=== PATIENT | female | born 1960 | race African-American/Black ===

== ENCOUNTER 2018-08-03 09:06 | Emergency (ER) | payer MEDICAID ==
[~2018-08-03] VITALS: Ht 167.6 cm; Wt 81.6 kg
[2018-08-03 10:01] LABS: Basophils # (auto) 0 uL; Basophils % (auto) 0.6 % (0.0-2.0); Eosinophils # (auto) 0.2 uL; Eosinophils % (auto) 2.6 % (0.0-7.0); Hemoglobin 11.7 g/dL (12.2-16.2); Lymphocytes # (auto) 2.6 uL; Lymphocytes % (auto) 43.7 % (10.0-50.0); Mean Corpuscular Hemoglobin 29.5 pg (28.0-32.0); Mean Corpuscular Hgb Conc. 33.4 g/dL (32.0-36.0); Mean Corpuscular Volume 88.4 fL (80.0-100.0); Monocytes # (auto) 0.4 uL; Monocytes % (auto) 6.2 % (0.0-12.0); Neutrophils # (auto) 2.8 uL; Neutrophils % (auto) 46.9 % (37.0-80.0); Nucleated Red Blood Cells % 0.1 %; Platelet Count (auto) 200 10^3/uL (140-450); Red Blood Cells 3.96 10^6/uL (4.0-5.20); Red Cell Distribution Width 13.8 % (11.8-14.3)
[2018-08-03 10:08] LABS: Alanine Aminotransferase 23 U/L (13-56); Anion Gap 10 (5-15); Aspartate Aminotransferase 13 U/L (15-37); BUN/Creatinine Ratio 16.9; Blood Urea Nitrogen 31 mg/dL (7-18); Calcium 9.2 mg/dL (8.5-10.1); Carbon Dioxide 26 mmol/L (21-32); Chloride 100 mmol/L (98-107); GFR African American 37 mL/min; GFR Non-African American 30 mL/min; Glucose 367 mg/dL (74-106); Potassium 3.4 mmol/L (3.5-5.1); Sodium 136 mmol/L (136-145)
[2018-08-03 10:12] LABS: Alkaline Phosphatase 73 U/L (45-117); Bilirubin, Total 0.3 mg/dL (0.2-1.0); Total Protein 7.9 g/dL (6.4-8.2)
[2018-08-03 12:17] VITALS: BP 151/76
[2018-08-03] MEDS ORDERED: HYDROcodone-ACET 7.5/325MG TAB PO ONE (13:45)
[2018-08-03] MEDS ORDERED: InsuLIN REG 1unit/0.01ml Soln (100units/ml) SC ONE (13:45)
== END 2018-08-03 14:53 | disposition home or self-care (01) ==
LOC: ER 09:06 → EDBD 09:06 → ER 14:53
DX: E11.65 Type 2 diabetes mellitus with hyperglycemia (principal); R51 Headache; I10 Essential (primary) hypertension; E11.9 Type 2 diabetes mellitus without complications; E78.5 Hyperlipidemia, unspecified; Z86.73 Personal history of transient ischemic attack (TIA), and cerebral infarction without residual deficits
CPT/HCPCS: 36415; 70450; 80053; 82962; 84484; 85025; 93005; 96372; 99284; J1815

== ENCOUNTER 2018-10-31 11:51 | Emergency (ER) | payer MEDICAID ==
[~2018-10-31] VITALS: Ht 157.5 cm; Wt 74.8 kg
[2018-10-31] MEDS ORDERED: SODIUM CHLORIDE 0.9% 1,000 ML IV ONE (12:10)
[2018-10-31] MEDS ORDERED: FAMOTIDINE (10MG/ML) 2ML VL IV ONE (12:15)
[2018-10-31] MEDS ORDERED: ONDANSETRON HCL 4 MG/2 ML VIAL IV ONE (12:15)
[2018-10-31 12:32] LABS: Basophils # (auto) 0.1 uL; Basophils % (auto) 1.1 % (0.0-2.0); Eosinophils # (auto) 0 uL; Eosinophils % (auto) 0.3 % (0.0-7.0); Hematocrit 39.8 % (36.0-46.0); Hemoglobin 13.4 g/dL (12.2-16.2); Lymphocytes # (auto) 1.7 uL; Lymphocytes % (auto) 24.4 % (10.0-50.0); Mean Corpuscular Hemoglobin 29.6 pg (28.0-32.0); Mean Corpuscular Hgb Conc. 33.7 g/dL (32.0-36.0); Mean Corpuscular Volume 87.8 fL (80.0-100.0); Monocytes # (auto) 0.3 uL; Monocytes % (auto) 3.9 % (0.0-12.0); Neutrophils % (auto) 70.3 % (37.0-80.0); Nucleated Red Blood Cells % 0.1 %; Platelet Count (auto) 314 10^3/uL (140-450); Red Blood Cells 4.53 10^6/uL (4.0-5.20); Red Cell Distribution Width 13.5 % (11.8-14.3); White Blood Cell 7.1 10^3/uL (4.4-10.8)
[2018-10-31 12:46] LABS: INR 0.97 (0.9-1.15); Partial Thromboplastin Time 28.2 sec (23.64-32.05)
[2018-10-31 12:50] LABS: Alanine Aminotransferase 19 U/L (13-56); Albumin 4.5 g/dL (3.4-5.0); Anion Gap 12 (5-15); Aspartate Aminotransferase 18 U/L (15-37); Blood Urea Nitrogen 29 mg/dL (7-18); Calcium 9.4 mg/dL (8.5-10.1); Carbon Dioxide 24 mmol/L (21-32); Chloride 98 mmol/L (98-107); Glucose 350 mg/dL (74-106); Magnesium 1.7 mg/dL (1.6-2.6); Potassium 3.6 mmol/L (3.5-5.1); Sodium 134 mmol/L (136-145)
[2018-10-31 12:56] LABS: Alkaline Phosphatase 82 U/L (45-117); BUN/Creatinine Ratio 13.4; GFR African American 30 mL/min; GFR Non-African American 25 mL/min; Total Protein 8.6 g/dL (6.4-8.2)
[2018-10-31] MEDS ORDERED: GABAPENTIN 300 MG CAP PO ONE (15:00)
[2018-10-31 15:18] VITALS: BP 118/56
== END 2018-10-31 15:19 | disposition home or self-care (01) ==
LOC: ER 11:55
DX: B34.9 Viral infection, unspecified (principal); E11.9 Type 2 diabetes mellitus without complications; E78.5 Hyperlipidemia, unspecified; I10 Essential (primary) hypertension; Z86.73 Personal history of transient ischemic attack (TIA), and cerebral infarction without residual deficits; Z90.49 Acquired absence of other specified parts of digestive tract; Z88.6 Allergy status to analgesic agent
CPT/HCPCS: 36415; 80053; 83735; 84484; 85025; 85610; 85730; 93005; 94761; 96361; 96374; 96375; 99284; J2405; J3490; J7030

== ENCOUNTER 2018-11-18 10:14 | Emergency (ER) | payer MEDICAID ==
[~2018-11-18] VITALS: Ht 157.5 cm; Wt 81.6 kg
[2018-11-18 11:08] LABS: Basophils # (auto) 0 uL; Basophils % (auto) 0.8 % (0.0-2.0); Eosinophils # (auto) 0 uL; Eosinophils % (auto) 0.4 % (0.0-7.0); Hematocrit 37.6 % (36.0-46.0); Hemoglobin 12.9 g/dL (12.2-16.2); Lymphocytes % (auto) 17.4 % (10.0-50.0); Mean Corpuscular Hemoglobin 29.9 pg (28.0-32.0); Mean Corpuscular Hgb Conc. 34.2 g/dL (32.0-36.0); Mean Corpuscular Volume 87.6 fL (80.0-100.0); Monocytes # (auto) 0.2 uL; Monocytes % (auto) 2.9 % (0.0-12.0); Neutrophils # (auto) 4.7 uL; Neutrophils % (auto) 78.5 % (37.0-80.0); Platelet Count (auto) 214 10^3/uL (140-450); Red Cell Distribution Width 13.9 % (11.8-14.3)
[2018-11-18 11:18] LABS: Alanine Aminotransferase 26 U/L (13-56); Albumin 4.3 g/dL (3.4-5.0); Anion Gap 9 (5-15); Aspartate Aminotransferase 16 U/L (15-37); BUN/Creatinine Ratio 7.6; Blood Urea Nitrogen 13 mg/dL (7-18); Calcium 8.7 mg/dL (8.5-10.1); Carbon Dioxide 26 mmol/L (21-32); Chloride 95 mmol/L (98-107); GFR African American 39 mL/min; GFR Non-African American 33 mL/min; Glucose 365 mg/dL (74-106); Potassium 3.8 mmol/L (3.5-5.1); Sodium 130 mmol/L (136-145)
[2018-11-18 11:22] LABS: Alkaline Phosphatase 80 U/L (45-117); Bilirubin, Total 0.8 mg/dL (0.2-1.0); Total Protein 8.2 g/dL (6.4-8.2)
[2018-11-18] MEDS ORDERED: SODIUM CHLORIDE 0.9% 1,000 ML IV ONE ×2 (13:11)
[2018-11-18] MEDS ORDERED: InsuLIN REG 1unit/0.01ml Soln (100units/ml) IV ONE (13:15)
[2018-11-18] MEDS ORDERED: KETOROLAC TROMETH 30 MG/ML 1ML VIAL IV ONE (14:30)
[2018-11-18 16:14] VITALS: BP 143/88
== END 2018-11-18 16:38 | disposition home or self-care (01) ==
LOC: ER 10:14 → EDBD 10:14 → ER 16:38
DX: K52.9 Noninfective gastroenteritis and colitis, unspecified (principal); E11.65 Type 2 diabetes mellitus with hyperglycemia; E78.5 Hyperlipidemia, unspecified; I10 Essential (primary) hypertension; Z90.49 Acquired absence of other specified parts of digestive tract; Z86.73 Personal history of transient ischemic attack (TIA), and cerebral infarction without residual deficits
CPT/HCPCS: 36415; 71045; 74176; 80053; 82962; 84484; 85025; 93005; 96361; 96374; 96375; 99284; J1815; J1885; J7030

== ENCOUNTER 2019-10-21 10:02 | Emergency (ER) | payer MEDICAID ==
[~2019-10-21] VITALS: Ht 160 cm; Wt 81.6 kg
[2019-10-21 10:24] VITALS: BP 170/100
[2019-10-21] MEDS ORDERED: ACETAMINOPHEN 500 MG TAB PO ONE (10:45)
== END 2019-10-21 11:21 | disposition home or self-care (01) ==
LOC: ER 10:02 → EDBD 10:02 → ER 11:21
DX: T16.2XXA Foreign body in left ear, initial encounter (principal); E11.9 Type 2 diabetes mellitus without complications; I10 Essential (primary) hypertension; E78.5 Hyperlipidemia, unspecified; Z90.49 Acquired absence of other specified parts of digestive tract
CPT/HCPCS: 69200

== ENCOUNTER 2020-02-08 17:07 | Emergency (ER) | payer MEDICAID ==
[~2020-02-08] VITALS: Ht 167.6 cm; Wt 72.6 kg
[2020-02-08] MEDS ORDERED: ACETAMINOPHEN 500 MG TAB PO ONE (19:30)
[2020-02-08 20:29] LABS: Urine Bacteria FEW /hpf (None Seen); Urine Blood 2+ /uL (Negative); Urine Specific Gravity 1.019 (1.001-1.035); Urine WBC 2 /hpf (0 - 5)
[2020-02-08 21:50] VITALS: BP 148/80
[2020-02-08 23:25] LABS: Basophils # (auto) 0 10 ^3/uL (0-0.2); Basophils % (auto) 0.8 % (0.0-2.0); Eosinophils # (auto) 0 10 ^3/uL (0-0.8); Eosinophils % (auto) 0.6 % (0.0-7.0); Hematocrit 35.4 % (36.0-46.0); Hemoglobin 11.8 g/dL (12.2-16.2); Lymphocytes # (auto) 0.8 10 ^3/uL (0.4-5.4); Lymphocytes % (auto) 12.6 % (10.0-50.0); Mean Corpuscular Hemoglobin 29.2 pg (28.0-32.0); Mean Corpuscular Hgb Conc. 33.3 g/dL (32.0-36.0); Mean Corpuscular Volume 87.7 fL (80.0-100.0); Monocytes # (auto) 0.5 10 ^3/uL (0-1.3); Monocytes % (auto) 8.1 % (0.0-12.0); Neutrophils # (auto) 4.8 10 ^3/uL (1.6-8.6); Neutrophils % (auto) 77.9 % (37.0-80.0); Nucleated Red Blood Cells % 0.1 %; Platelet Count (auto) 241 10^3/uL (140-450); Red Blood Cells 4.04 10^6/uL (4.0-5.20); White Blood Cell 6.2 10^3/uL (4.4-10.8)
[2020-02-08 23:43] LABS: Albumin 3.6 g/dL (3.4-5.0); Calcium 8.9 mg/dL (8.5-10.1); Potassium 3.1 mmol/L (3.5-5.1)
[2020-02-08 23:48] LABS: BUN/Creatinine Ratio 10.6; Bilirubin, Total 0.4 mg/dL (0.2-1.0); Total Protein 8.1 g/dL (6.4-8.2)
[2020-02-09 02:21] LABS: Alcohol, Urine < 3.0 mg/dL (0-10); Amphetamine Screen, Urine NEGATIVE (NEGATIVE); Barbiturate Scree,Urine NEGATIVE (NEGATIVE); Benzodiazephine Screen, Urine POSITIVE (NEGATIVE); Cannabinoid Screen, Urine NEGATIVE (NEGATIVE); Cocaine Screen, Urine NEGATIVE (NEGATIVE); Opiate Scree,Urine NEGATIVE (NEGATIVE); Phencyclidine Screen, Urine NEGATIVE (NEGATIVE)
[2020-02-09] MEDS ORDERED: MORPHINE SULF INJ 2 MG/ML SYRINGE 1ML IM ONE (03:15)
[2020-02-09] MEDS ORDERED: ONDANSETRON HCL 4 MG/2 ML VIAL IM ONE (03:15)
== END 2020-02-09 03:10 | disposition home or self-care (01) ==
LOC: EDBD 17:07 → ER 17:07
DX: G89.29 Other chronic pain (principal); M54.5 Low back pain; E11.9 Type 2 diabetes mellitus without complications; E78.5 Hyperlipidemia, unspecified; I10 Essential (primary) hypertension; Z90.49 Acquired absence of other specified parts of digestive tract; Z20.828 Contact with and (suspected) exposure to other viral communicable diseases; Z86.73 Personal history of transient ischemic attack (TIA), and cerebral infarction without residual deficits; Z88.6 Allergy status to analgesic agent
CPT/HCPCS: 36415; 80053; 80307; 81001; 82728; 85025; 87426; 96372; 99284; J2270; J2405

== ENCOUNTER 2020-09-24 23:51 | Inpatient (IN) | payer MEDICAID ==
[~2020-09-24] VITALS: Ht 162.6 cm; Wt 86.9 kg
[2020-09-25] MEDS ORDERED: SODIUM CHLORIDE 0.9% 1,000 ML IV ONE ×2 (00:15→05:30)
[2020-09-25 01:47] LABS: Basophils # (auto) 0.2 10 ^3/uL (0-0.2); Basophils % (auto) 1.1 % (0.0-2.0); Eosinophils # (auto) 0 10 ^3/uL (0-0.8); Hematocrit 36.6 % (36.0-46.0); Lymphocytes % (auto) 14.9 % (10.0-50.0); Mean Corpuscular Hemoglobin 30.6 pg (28.0-32.0); Mean Corpuscular Hgb Conc. 32.8 g/dL (32.0-36.0); Mean Corpuscular Volume 93.4 fL (80.0-100.0); Monocytes # (auto) 0.9 10 ^3/uL (0-1.3); Monocytes % (auto) 6.7 % (0.0-12.0); Neutrophils # (auto) 10.3 10 ^3/uL (1.6-8.6); Neutrophils % (auto) 77.3 % (37.0-80.0); Nucleated Red Blood Cells % 0.1 %; Red Blood Cells 3.92 10^6/uL (4.0-5.20); Red Cell Distribution Width 15.7 % (11.8-14.3); White Blood Cell 13.3 10^3/uL (4.4-10.8)
[2020-09-25 02:13] LABS: Lactic Acid w/Reflex 2.7 mmol/L (0.4-2.0)
[2020-09-25 02:20] LABS: INR 1.06 (0.9-1.15); Partial Thromboplastin Time 22.9 sec (23.6-33.0)
[2020-09-25 03:14] LABS: Albumin 3.8 g/dL (3.4-5.0); Anion Gap 24 (5-15); Carbon Dioxide 16 mmol/L (21-32); Chloride 94 mmol/L (98-107); Magnesium 2.5 mg/dL (1.6-2.6); Potassium 5.3 mmol/L (3.5-5.1); Sodium 134 mmol/L (136-145)
[2020-09-25 03:17] LABS: Alanine Aminotransferase 44 U/L (13-56); Aspartate Aminotransferase 290 U/L (15-37); Bilirubin, Total 0.4 mg/dL (0.2-1.0); GFR African American 2 mL/min; GFR Non-African American 2 mL/min; Total Protein 9.4 g/dL (6.4-8.2)
[2020-09-25 03:19] LABS: Glucose 588 mg/dL (74-106)
[2020-09-25 03:20] LABS: Blood Urea Nitrogen 97 mg/dL (7-18)
[2020-09-25 03:23] LABS: Alkaline Phosphatase 85 U/L (45-117)
[2020-09-25] MEDS ORDERED: InsuLIN REG 1unit/0.01ml Soln (100units/ml) IV ONE (03:30)
[2020-09-25] MEDS ORDERED: InsuLIN REG 1unit/0.01ml Soln (100units/ml) ONE (03:30)
[2020-09-25 04:00] LABS: Amphetamine Screen, Urine NEGATIVE (NEGATIVE); Barbiturate Scree,Urine NEGATIVE (NEGATIVE); Benzodiazephine Screen, Urine NEGATIVE (NEGATIVE); Cannabinoid Screen, Urine NEGATIVE (NEGATIVE); Cocaine Screen, Urine NEGATIVE (NEGATIVE); Opiate Scree,Urine NEGATIVE (NEGATIVE); Phencyclidine Screen, Urine NEGATIVE (NEGATIVE)
[2020-09-25 04:04] LABS: Urine Bacteria MOD /hpf (None Seen); Urine Blood TRACE /uL (Negative); Urine Hyaline Cast FEW /lpf (0 - 2); Urine Specific Gravity 1.024 (1.001-1.035); Urine WBC 45 /hpf (0 - 5)
[2020-09-25] MEDS ORDERED: cefTRIAXone 1GM/50ML D5W 50 ML IV ONE (05:30)
[2020-09-25] MEDS ORDERED: SODIUM CHLORIDE 0.9% 1,000 ML IV SCH ×4 (05:30→11:30)
[2020-09-25] MEDS ORDERED: INSULIN LANTUS (GLARGINE) 1 /0.01ml (100units/ml) SC ONE (05:30)
[2020-09-25] MEDS ORDERED: InsuLIN R (HUMAN) 100 UNITS in SODIUM CHL 0.9% 99 ML IV SCH ×3 (05:30→08:15)
[2020-09-25] MEDS ORDERED: DEXTROSE (50%) 50ML SYRG IV PRN ×3 (05:30→08:15)
[2020-09-25] MEDS ORDERED: D5W/SOD CHLO 0.9% 1,000 ML IV SCH (05:45)
[2020-09-25] MEDS ORDERED: ONDANSETRON HCL 4 MG/2 ML VIAL IV PRN (05:45)
[2020-09-25] MEDS ORDERED: MORPHINE SULFATE INJECTION 2 MG/2 ML SYRG IV PRN (05:45)
[2020-09-25] MEDS ORDERED: NITROGLYCERIN 0.4 MG SL TAB SL PRN (05:45)
[2020-09-25] MEDS ORDERED: ACCU-CHEK COMFORT CURVE STRIP VI SCH ×3 (06:00→09:00)
[2020-09-25 06:31] LABS: Basophils # (auto) 0.2 10 ^3/uL (0-0.2); Basophils % (auto) 1.1 % (0.0-2.0); Eosinophils # (auto) 0.1 10 ^3/uL (0-0.8); Eosinophils % (auto) 0.3 % (0.0-7.0); Hematocrit 33.7 % (36.0-46.0); Hemoglobin 10.9 g/dL (12.2-16.2); Lymphocytes # (auto) 1.9 10 ^3/uL (0.4-5.4); Mean Corpuscular Hemoglobin 30.5 pg (28.0-32.0); Mean Corpuscular Hgb Conc. 32.4 g/dL (32.0-36.0); Mean Corpuscular Volume 94.1 fL (80.0-100.0); Monocytes # (auto) 1.1 10 ^3/uL (0-1.3); Monocytes % (auto) 7.1 % (0.0-12.0); Neutrophils # (auto) 12.4 10 ^3/uL (1.6-8.6); Neutrophils % (auto) 79.5 % (37.0-80.0); Red Blood Cells 3.58 10^6/uL (4.0-5.20); Red Cell Distribution Width 15.4 % (11.8-14.3); White Blood Cell 15.5 10^3/uL (4.4-10.8)
[2020-09-25 06:47] LABS: Albumin 3.3 g/dL (3.4-5.0); Calcium 8.6 mg/dL (8.5-10.1); Magnesium 2.6 mg/dL (1.6-2.6); Potassium 4.9 mmol/L (3.5-5.1)
[2020-09-25 06:56] LABS: Bilirubin, Total 0.3 mg/dL (0.2-1.0); Total Protein 8.4 g/dL (6.4-8.2)
[2020-09-25] MEDS: HEPARIN SODIUM (PORCINE) 5000 UNITS/ML 1ML VIAL SC SCH ×3 (07:06→21:56)
[2020-09-25 07:08] LABS: BUN/Creatinine Ratio 5.1
[2020-09-25] MEDS: SODIUM CHLORIDE 0.9% 1,000 ML IV SCH ×3 (08:45→22:01)
[2020-09-25] MEDS: ACCU-CHEK COMFORT CURVE STRIP VI SCH ×8 (09:45→22:02)
[2020-09-25] MEDS: cefTRIAXone 1GM/50ML D5W 50 ML IV SCH (10:30)
[2020-09-25 10:36] LABS: Potassium 5.1 mmol/L (3.5-5.1)
[2020-09-25] MEDS: InsuLIN R (HUMAN) 100 UNITS in SODIUM CHL 0.9% 99 ML IV SCH ×3 (10:41→13:48)
[2020-09-25 10:46] LABS: Albumin 3.3 g/dL (3.4-5.0); BUN/Creatinine Ratio 5.4; Bilirubin, Total 0.3 mg/dL (0.2-1.0); Calcium 8.7 mg/dL (8.5-10.1); Total Protein 8.4 g/dL (6.4-8.2)
[2020-09-25] MEDS ORDERED: SODIUM BICARBONATE 50ML VIAL 100 ML in SOD CHL 0.45% 1,000 ML IV SCH (12:45)
[2020-09-25] MEDS: SODIUM BICARBONATE 50ML VIAL 50 ML in SOD CHL 0.45% 1,000 ML IV SCH ×3 (14:33→23:30)
[2020-09-25 14:44] LABS: Magnesium 2.7 mg/dL (1.6-2.6); Potassium 4.6 mmol/L (3.5-5.1)
[2020-09-25 14:47] LABS: BUN/Creatinine Ratio 5.2; Phosphorus 8.7 mg/dL (2.5-4.90)
[2020-09-25 15:48] LABS: Protein, Urine 187.1 mg/dL (0.0-11.9)
[2020-09-25] MEDS: InsuLIN REG 1unit/0.01ml Soln (100units/ml) SC SCH ×2 (18:01→21:57)
[2020-09-25] MEDS ORDERED: SODIUM BICARBONATE 8.4 % INJ 50ML VIAL IV ONE (21:24)
[2020-09-25 22:30] LABS: Calcium 9.1 mg/dL (8.5-10.1); Potassium 4.5 mmol/L (3.5-5.1)
[2020-09-25 22:35] LABS: BUN/Creatinine Ratio 5.7; Bilirubin, Total 0.3 mg/dL (0.2-1.0)
[2020-09-26 02:38] LABS: Albumin 2.9 g/dL (3.4-5.0); Calcium 8.9 mg/dL (8.5-10.1); Potassium 4.6 mmol/L (3.5-5.1)
[2020-09-26 02:42] LABS: Bilirubin, Total 0.3 mg/dL (0.2-1.0); Total Protein 7.7 g/dL (6.4-8.2)
[2020-09-26] MEDS: SODIUM CHLORIDE 0.9% 1,000 ML IV SCH (03:30)
[2020-09-26] MEDS ORDERED: SODIUM BICARBONATE 8.4 % INJ 50ML VIAL IV ONE (04:52)
[2020-09-26] MEDS: SODIUM BICARBONATE 50ML VIAL 50 ML in SOD CHL 0.45% 1,000 ML IV SCH ×4 (06:04→15:41)
[2020-09-26] MEDS: ACCU-CHEK COMFORT CURVE STRIP VI SCH ×4 (07:25→22:05)
[2020-09-26] MEDS: InsuLIN REG 1unit/0.01ml Soln (100units/ml) SC SCH ×4 (07:26→22:20)
[2020-09-26] MEDS: HEPARIN SODIUM (PORCINE) 5000 UNITS/ML 1ML VIAL SC SCH ×3 (07:26→22:20)
[2020-09-26 07:31] LABS: Basophils # (auto) 0 10 ^3/uL (0-0.2); Basophils % (auto) 0.2 % (0.0-2.0); Eosinophils # (auto) 0 10 ^3/uL (0-0.8); Eosinophils % (auto) 0.1 % (0.0-7.0); Hematocrit 32.8 % (36.0-46.0); Hemoglobin 10.6 g/dL (12.2-16.2); Lymphocytes # (auto) 1.3 10 ^3/uL (0.4-5.4); Lymphocytes % (auto) 9.3 % (10.0-50.0); Mean Corpuscular Hemoglobin 30.1 pg (28.0-32.0); Mean Corpuscular Hgb Conc. 32.3 g/dL (32.0-36.0); Mean Corpuscular Volume 93.3 fL (80.0-100.0); Monocytes # (auto) 0.9 10 ^3/uL (0-1.3); Neutrophils # (auto) 12.1 10 ^3/uL (1.6-8.6); Neutrophils % (auto) 84.4 % (37.0-80.0); Red Blood Cells 3.52 10^6/uL (4.0-5.20); Red Cell Distribution Width 14.7 % (11.8-14.3); White Blood Cell 14.3 10^3/uL (4.4-10.8)
[2020-09-26 07:47] LABS: Potassium 4.3 mmol/L (3.5-5.1)
[2020-09-26 07:57] LABS: Albumin 2.6 g/dL (3.4-5.0); BUN/Creatinine Ratio 6.2; Bilirubin, Total 0.4 mg/dL (0.2-1.0); Calcium 8.9 mg/dL (8.5-10.1); Total Protein 7.4 g/dL (6.4-8.2)
[2020-09-26] MEDS ORDERED: INSULIN LANTUS (GLARGINE) 1 /0.01ml (100units/ml) SC SCH (10:00)
[2020-09-26] MEDS: cefTRIAXone 1GM/50ML D5W 50 ML IV SCH (10:23)
[2020-09-26 10:52] LABS: Albumin 2.6 g/dL (3.4-5.0); Calcium 8.7 mg/dL (8.5-10.1); Potassium 4.1 mmol/L (3.5-5.1)
[2020-09-26 10:56] LABS: BUN/Creatinine Ratio 6.6; Bilirubin, Total 0.3 mg/dL (0.2-1.0); Total Protein 7.6 g/dL (6.4-8.2)
[2020-09-26] MEDS: DOPamine 1600MCG/ML D5W 250 ML IV SCH (11:39)
[2020-09-26] MEDS: hydrALAZINE HCL 25 MG TAB PO SCH ×2 (14:00→22:29)
[2020-09-26] MEDS ORDERED: ASPirin 81 mg TAB PO ONE (14:45)
[2020-09-26] MEDS: traMADol HCL 50 MG TAB PO PRN (14:45)
[2020-09-26] MEDS ORDERED: GLIP2.5T28 PO (15:12)
[2020-09-26] MEDS ORDERED: FURO40TA4 PO (15:12)
[2020-09-26] MEDS ORDERED: ATOR20TA PO (15:12)
[2020-09-26] MEDS ORDERED: PHEN37.577 PO (15:12)
[2020-09-26] MEDS ORDERED: ASPI-543 PO (15:12)
[2020-09-26] MEDS ORDERED: AMIT25TA10 PO (15:12)
[2020-09-26] MEDS ORDERED: METO-158 PO (15:12)
[2020-09-26] MEDS ORDERED: LISI30TA4 PO (15:12)
[2020-09-26] MEDS ORDERED: SITA50TA PO (15:12)
[2020-09-26] MEDS ORDERED: SODIUM CHLORIDE 0.9% 1,000 ML IV SCH (15:30)
[2020-09-26 17:49] LABS: Albumin 2.4 g/dL (3.4-5.0); BUN/Creatinine Ratio 7.4; Calcium 7.9 mg/dL (8.5-10.1)
[2020-09-26 17:52] LABS: Bilirubin, Total 0.3 mg/dL (0.2-1.0); Total Protein 7.1 g/dL (6.4-8.2)
[2020-09-26] MEDS: ATORVASTATIN 20 MG TAB PO SCH (22:20)
[2020-09-26 22:42] LABS: Albumin 2.3 g/dL (3.4-5.0); Potassium 3.6 mmol/L (3.5-5.1)
[2020-09-26 22:45] LABS: Bilirubin, Total 0.6 mg/dL (0.2-1.0); Total Protein 6.8 g/dL (6.4-8.2)
[2020-09-27] VITALS (11 sets, daily range): BP systolic 102–149; BP diastolic 37–82
[2020-09-27] MEDS: SODIUM BICARBONATE 50ML VIAL 50 ML in SOD CHL 0.45% 1,000 ML IV SCH ×3 (02:13→23:04)
[2020-09-27 02:36] LABS: Potassium 3.7 mmol/L (3.5-5.1)
[2020-09-27 02:40] LABS: Albumin 2.3 g/dL (3.4-5.0); BUN/Creatinine Ratio 7.7
[2020-09-27 02:42] LABS: Bilirubin, Total 0.3 mg/dL (0.2-1.0); Total Protein 7.1 g/dL (6.4-8.2)
[2020-09-27 04:54] LABS: Basophils # (auto) 0.1 10 ^3/uL (0-0.2); Basophils % (auto) 0.9 % (0.0-2.0); Eosinophils # (auto) 0.1 10 ^3/uL (0-0.8); Eosinophils % (auto) 1.2 % (0.0-7.0); Hematocrit 26.6 % (36.0-46.0); Lymphocytes # (auto) 1.5 10 ^3/uL (0.4-5.4); Lymphocytes % (auto) 13.3 % (10.0-50.0); Mean Corpuscular Hemoglobin 31.1 pg (28.0-32.0); Mean Corpuscular Hgb Conc. 33.7 g/dL (32.0-36.0); Mean Corpuscular Volume 92.2 fL (80.0-100.0); Monocytes # (auto) 0.8 10 ^3/uL (0-1.3); Monocytes % (auto) 6.6 % (0.0-12.0); Neutrophils # (auto) 8.9 10 ^3/uL (1.6-8.6); Nucleated Red Blood Cells % 0.1 %; Red Blood Cells 2.88 10^6/uL (4.0-5.20); Red Cell Distribution Width 14.9 % (11.8-14.3); White Blood Cell 11.5 10^3/uL (4.4-10.8)
[2020-09-27 05:04] LABS: Albumin 1.9 g/dL (3.4-5.0); BUN/Creatinine Ratio 8.4; Potassium 3.2 mmol/L (3.5-5.1)
[2020-09-27 05:07] LABS: Total Protein 6.1 g/dL (6.4-8.2)
[2020-09-27] MEDS: HEPARIN SODIUM (PORCINE) 5000 UNITS/ML 1ML VIAL SC SCH ×3 (06:00→23:02)
[2020-09-27] MEDS: hydrALAZINE HCL 25 MG TAB PO SCH (06:00)
[2020-09-27] MEDS: ACCU-CHEK COMFORT CURVE STRIP VI SCH ×4 (07:45→22:58)
[2020-09-27] MEDS: InsuLIN REG 1unit/0.01ml Soln (100units/ml) SC SCH ×4 (08:08→23:21)
[2020-09-27] MEDS: cefTRIAXone 1GM/50ML D5W 50 ML IV SCH (10:00)
[2020-09-27 11:06] LABS: Albumin 2.1 g/dL (3.4-5.0); Potassium 3.7 mmol/L (3.5-5.1)
[2020-09-27 11:10] LABS: BUN/Creatinine Ratio 8.7; Bilirubin, Total 0.3 mg/dL (0.2-1.0); Total Protein 6.9 g/dL (6.4-8.2)
[2020-09-27] MEDS: DOPamine 1600MCG/ML D5W 250 ML IV SCH (13:51)
[2020-09-27] MEDS: hydrALAZINE HCL 10 MG TAB PO SCH ×2 (14:00→23:03)
[2020-09-27] MEDS: ASPirin 81 mg TAB PO SCH (14:43)
[2020-09-27] MEDS: traMADol HCL 50 MG TAB PO PRN (14:43)
[2020-09-27 16:05] LABS: Hepatitis A Ab IgM Negative; Hepatitis B Core IgM Negative
[2020-09-27 16:06] LABS: Hepatitis B Surface Antigen Negative (Negative); Hepatitis C Antibody Negative (Negative)
[2020-09-27 18:44] LABS: Albumin 2.1 g/dL (3.4-5.0); BUN/Creatinine Ratio 10.6; Calcium 7.7 mg/dL (8.5-10.1); Potassium 3.2 mmol/L (3.5-5.1)
[2020-09-27 18:47] LABS: Bilirubin, Total 0.2 mg/dL (0.2-1.0); Total Protein 6.6 g/dL (6.4-8.2)
[2020-09-27 23:00] LABS: Albumin 2.2 g/dL (3.4-5.0); Calcium 7.8 mg/dL (8.5-10.1)
[2020-09-27 23:02] LABS: BUN/Creatinine Ratio 10.3
[2020-09-27] MEDS: ATORVASTATIN 20 MG TAB PO SCH (23:03)
[2020-09-27 23:05] LABS: Bilirubin, Total 0.3 mg/dL (0.2-1.0); Total Protein 6.8 g/dL (6.4-8.2)
[2020-09-28] MEDS: traMADol HCL 50 MG TAB PO PRN ×2 (00:28→22:08)
[2020-09-28 02:31] LABS: Calcium 7.7 mg/dL (8.5-10.1)
[2020-09-28 02:35] LABS: Albumin 2.2 g/dL (3.4-5.0)
[2020-09-28 02:37] LABS: Bilirubin, Total 0.3 mg/dL (0.2-1.0); Total Protein 6.7 g/dL (6.4-8.2)
[2020-09-28 05:10] LABS: Basophils # (auto) 0.1 10 ^3/uL (0-0.2); Basophils % (auto) 0.8 % (0.0-2.0); Eosinophils # (auto) 0.2 10 ^3/uL (0-0.8); Eosinophils % (auto) 1.9 % (0.0-7.0); Hemoglobin 9.6 g/dL (12.2-16.2); Lymphocytes # (auto) 1.3 10 ^3/uL (0.4-5.4); Lymphocytes % (auto) 14.4 % (10.0-50.0); Mean Corpuscular Hemoglobin 30.7 pg (28.0-32.0); Mean Corpuscular Hgb Conc. 34.2 g/dL (32.0-36.0); Mean Corpuscular Volume 89.9 fL (80.0-100.0); Monocytes # (auto) 0.7 10 ^3/uL (0-1.3); Monocytes % (auto) 7.7 % (0.0-12.0); Neutrophils # (auto) 6.8 10 ^3/uL (1.6-8.6); Neutrophils % (auto) 75.2 % (37.0-80.0); Nucleated Red Blood Cells % 0.1 %; Red Blood Cells 3.11 10^6/uL (4.0-5.20); Red Cell Distribution Width 14.5 % (11.8-14.3)
[2020-09-28 05:29] LABS: Albumin 2.2 g/dL (3.4-5.0); BUN/Creatinine Ratio 11.2; Calcium 7.7 mg/dL (8.5-10.1); Potassium 3.1 mmol/L (3.5-5.1)
[2020-09-28 05:43] LABS: Bilirubin, Total 0.3 mg/dL (0.2-1.0); Total Protein 6.7 g/dL (6.4-8.2)
[2020-09-28] MEDS: hydrALAZINE HCL 10 MG TAB PO SCH (06:50)
[2020-09-28] MEDS: InsuLIN REG 1unit/0.01ml Soln (100units/ml) SC SCH ×4 (06:51→22:24)
[2020-09-28] MEDS: ACCU-CHEK COMFORT CURVE STRIP VI SCH ×4 (06:51→22:07)
[2020-09-28] MEDS: HEPARIN SODIUM (PORCINE) 5000 UNITS/ML 1ML VIAL SC SCH ×3 (06:51→22:08)
[2020-09-28] MEDS: SODIUM BICARBONATE 50ML VIAL 50 ML in SOD CHL 0.45% 1,000 ML IV SCH ×2 (08:07→19:09)
[2020-09-28] MEDS: ASPirin 81 mg TAB PO SCH (10:12)
[2020-09-28] MEDS: cefTRIAXone 1GM/50ML D5W 50 ML IV SCH (10:12)
[2020-09-28] MEDS ORDERED: INSU1INJ19 SC (10:22)
[2020-09-28 10:52] LABS: Potassium 3.1 mmol/L (3.5-5.1)
[2020-09-28 11:19] LABS: Albumin 2.3 g/dL (3.4-5.0); BUN/Creatinine Ratio 11.8; Bilirubin, Total 0.3 mg/dL (0.2-1.0); Total Protein 7.2 g/dL (6.4-8.2)
[2020-09-28 15:21] LABS: Albumin 1.9 g/dL (3.4-5.0); BUN/Creatinine Ratio 12.7; Calcium 6.9 mg/dL (8.5-10.1)
[2020-09-28 15:24] LABS: Bilirubin, Total 0.3 mg/dL (0.2-1.0); Total Protein 6.1 g/dL (6.4-8.2)
[2020-09-28 15:57] LABS: Potassium 2.8 mmol/L (3.5-5.1)
[2020-09-28] MEDS: POTASSIUM CHL 20MEQ/100ML 100 ML IV SCH ×2 (17:48→20:31)
[2020-09-28] MEDS: ATORVASTATIN 20 MG TAB PO SCH (22:07)
[2020-09-28 22:51] LABS: Alanine Aminotransferase 48 U/L (13-56); Albumin 2.2 g/dL (3.4-5.0); Anion Gap 12 (5-15); Aspartate Aminotransferase 143 U/L (15-37); BUN/Creatinine Ratio 12.9; Blood Urea Nitrogen 67 mg/dL (7-18); Calcium 7.5 mg/dL (8.5-10.1); Carbon Dioxide 23 mmol/L (21-32); Chloride 103 mmol/L (98-107); GFR African American 11 mL/min; GFR Non-African American 9 mL/min; Glucose 187 mg/dL (74-106); Potassium 3.4 mmol/L (3.5-5.1); Sodium 138 mmol/L (136-145)
[2020-09-28 22:54] LABS: Alkaline Phosphatase 69 U/L (45-117); Bilirubin, Total 0.4 mg/dL (0.2-1.0); Total Protein 6.9 g/dL (6.4-8.2)
[2020-09-29] MEDS: DOPamine 1600MCG/ML D5W 250 ML IV SCH ×2 (00:37→10:45)
[2020-09-29 01:51] LABS: Albumin 2.1 g/dL (3.4-5.0); BUN/Creatinine Ratio 13.5; Calcium 7.5 mg/dL (8.5-10.1); Potassium 3.1 mmol/L (3.5-5.1)
[2020-09-29 01:54] LABS: Bilirubin, Total 0.3 mg/dL (0.2-1.0); Total Protein 6.6 g/dL (6.4-8.2)
[2020-09-29] MEDS ORDERED: SODIUM BICARBONATE 8.4% INJ 50ML SYRINGE ONE (05:01)
[2020-09-29] MEDS: SODIUM BICARBONATE 50ML VIAL 50 ML in SOD CHL 0.45% 1,000 ML IV SCH (05:14)
[2020-09-29 05:41] LABS: Basophils # (auto) 0 10 ^3/uL (0-0.2); Basophils % (auto) 0.6 % (0.0-2.0); Eosinophils # (auto) 0.2 10 ^3/uL (0-0.8); Eosinophils % (auto) 2.4 % (0.0-7.0); Hematocrit 28.5 % (36.0-46.0); Hemoglobin 9.7 g/dL (12.2-16.2); Lymphocytes # (auto) 1.1 10 ^3/uL (0.4-5.4); Lymphocytes % (auto) 14.6 % (10.0-50.0); Mean Corpuscular Hemoglobin 30.6 pg (28.0-32.0); Mean Corpuscular Volume 89.8 fL (80.0-100.0); Monocytes # (auto) 0.6 10 ^3/uL (0-1.3); Monocytes % (auto) 7.7 % (0.0-12.0); Neutrophils # (auto) 5.7 10 ^3/uL (1.6-8.6); Neutrophils % (auto) 74.7 % (37.0-80.0); Red Blood Cells 3.17 10^6/uL (4.0-5.20); Red Cell Distribution Width 14.6 % (11.8-14.3); White Blood Cell 7.6 10^3/uL (4.4-10.8)
[2020-09-29 06:13] LABS: Albumin 2.2 g/dL (3.4-5.0); Calcium 7.8 mg/dL (8.5-10.1)
[2020-09-29 06:16] LABS: BUN/Creatinine Ratio 14.1; Bilirubin, Total 0.4 mg/dL (0.2-1.0); Total Protein 6.9 g/dL (6.4-8.2)
[2020-09-29] MEDS: ACCU-CHEK COMFORT CURVE STRIP VI SCH ×4 (06:40→21:26)
[2020-09-29] MEDS: InsuLIN REG 1unit/0.01ml Soln (100units/ml) SC SCH ×4 (06:49→21:26)
[2020-09-29] MEDS: HEPARIN SODIUM (PORCINE) 5000 UNITS/ML 1ML VIAL SC SCH ×3 (06:50→21:25)
[2020-09-29] MEDS: ASPirin 81 mg TAB PO SCH (10:05)
[2020-09-29] MEDS: traMADol HCL 50 MG TAB PO PRN (10:06)
[2020-09-29] MEDS: cefTRIAXone 1GM/50ML D5W 50 ML IV SCH (10:06)
[2020-09-29 11:07] LABS: Albumin 2.2 g/dL (3.4-5.0); Calcium 8.1 mg/dL (8.5-10.1); Potassium 3.2 mmol/L (3.5-5.1)
[2020-09-29 11:11] LABS: BUN/Creatinine Ratio 14.4; Bilirubin, Total 0.4 mg/dL (0.2-1.0); Total Protein 7.2 g/dL (6.4-8.2)
[2020-09-29] MEDS: SODIUM CHLORIDE 0.9% 1,000 ML IV SCH ×2 (11:36→21:24)
[2020-09-29] MEDS: POTASSIUM CHL 20 Meq TABLET PO SCH ×2 (11:37→14:39)
[2020-09-29] MEDS ORDERED: amLODIPine BESYLATE 5 MG TAB PO ONE (13:15)
[2020-09-29 14:20] VITALS: BP 157/73
[2020-09-29 14:38] VITALS: BP 161/68
[2020-09-29 16:18] LABS: Albumin 2.2 g/dL (3.4-5.0); BUN/Creatinine Ratio 14.2; Calcium 7.5 mg/dL (8.5-10.1); Potassium 3.1 mmol/L (3.5-5.1)
[2020-09-29 16:21] LABS: Bilirubin, Total 0.3 mg/dL (0.2-1.0); Total Protein 6.7 g/dL (6.4-8.2)
[2020-09-29 17:00] VITALS: BP_SYST 157; BP_SYST 93; BP_DIAS 41; BP_DIAS 73
[2020-09-29] MEDS: AMITRIPTYLINE HCL 25 MG TAB PO SCH (21:25)
[2020-09-29] MEDS: ATORVASTATIN 20 MG TAB PO SCH (21:25)
[2020-09-29 22:00] VITALS: BP 145/75
[2020-09-29 23:13] LABS: BUN/Creatinine Ratio 14.9
[2020-09-29 23:15] LABS: Bilirubin, Total 0.3 mg/dL (0.2-1.0); Total Protein 6.3 g/dL (6.4-8.2)
[2020-09-30] MEDS ORDERED: POTASSIUM CHL 20 Meq TABLET PO ONE ×2 (01:30→12:45)
[2020-09-30 05:00] VITALS: BP 159/79
[2020-09-30] MEDS: HEPARIN SODIUM (PORCINE) 5000 UNITS/ML 1ML VIAL SC SCH ×3 (06:11→21:35)
[2020-09-30] MEDS: ACCU-CHEK COMFORT CURVE STRIP VI SCH ×4 (06:12→21:36)
[2020-09-30] MEDS: InsuLIN REG 1unit/0.01ml Soln (100units/ml) SC SCH ×4 (06:16→21:36)
[2020-09-30] MEDS: SODIUM CHLORIDE 0.9% 1,000 ML IV SCH (07:44)
[2020-09-30] MEDS: traMADol HCL 50 MG TAB PO PRN ×2 (08:08→20:15)
[2020-09-30 09:00] VITALS: BP 152/80
[2020-09-30] MEDS: amLODIPine BESYLATE 5 MG TAB PO SCH (10:10)
[2020-09-30] MEDS: ASPirin 81 mg TAB PO SCH (10:10)
[2020-09-30] MEDS: cefTRIAXone 1GM/50ML D5W 50 ML IV SCH (10:10)
[2020-09-30] MEDS: DOPamine 1600MCG/ML D5W 250 ML IV SCH (10:49)
[2020-09-30 13:00] VITALS: BP 155/90
[2020-09-30 17:00] VITALS: BP 164/78
[2020-09-30] MEDS: hydrALAZINE HCL 20 MG/ML VL IV PRN (17:17)
[2020-09-30] MEDS ORDERED: METOPROLOL TARTRATE 25 MG TAB PO SCH (19:00)
[2020-09-30] MEDS ORDERED: AML5T PO (19:11)
[2020-09-30] MEDS ORDERED: LEVO500T31 PO (19:11)
[2020-09-30] MEDS: METOPROLOL TARTRATE 50 MG TAB PO SCH (19:45)
[2020-09-30 20:42] LABS: BUN/Creatinine Ratio 14.3; Calcium 7.4 mg/dL (8.5-10.1); Potassium 4.5 mmol/L (3.5-5.1)
[2020-09-30] MEDS: AMITRIPTYLINE HCL 25 MG TAB PO SCH (21:30)
[2020-09-30] MEDS: ATORVASTATIN 20 MG TAB PO SCH (21:34)
[2020-09-30 22:00] VITALS: BP 124/75
[2020-10-01 05:00] VITALS: BP 141/64
[2020-10-01] MEDS: ACCU-CHEK COMFORT CURVE STRIP VI SCH ×4 (06:18→21:11)
[2020-10-01] MEDS: InsuLIN REG 1unit/0.01ml Soln (100units/ml) SC SCH ×4 (06:18→21:12)
[2020-10-01] MEDS: METOPROLOL TARTRATE 50 MG TAB PO SCH ×2 (06:19→19:27)
[2020-10-01] MEDS: HEPARIN SODIUM (PORCINE) 5000 UNITS/ML 1ML VIAL SC SCH ×3 (06:20→21:12)
[2020-10-01 09:00] VITALS: BP 124/70
[2020-10-01] MEDS: cefTRIAXone 1GM/50ML D5W 50 ML IV SCH (09:23)
[2020-10-01] MEDS: hydrALAZINE HCL 20 MG/ML VL IV PRN (09:23)
[2020-10-01] MEDS: ASPirin 81 mg TAB PO SCH (09:23)
[2020-10-01] MEDS: amLODIPine BESYLATE 5 MG TAB PO SCH (09:24)
[2020-10-01 13:00] VITALS: BP 162/73
[2020-10-01 17:00] VITALS: BP 130/69
[2020-10-01] MEDS ORDERED: SODIUM CHLORIDE 0.9% 1,000 ML IV ONE (17:45)
[2020-10-01] MEDS: VANCOMYCIN HCL 125MG/5ML ORAL SOL PO SCH ×2 (19:19→22:44)
[2020-10-01] MEDS: ATORVASTATIN 20 MG TAB PO SCH (21:10)
[2020-10-01] MEDS: AMITRIPTYLINE HCL 25 MG TAB PO SCH (21:10)
[2020-10-01 22:00] VITALS: BP 140/68
[2020-10-02 05:00] VITALS: BP 140/69
[2020-10-02] MEDS: HEPARIN SODIUM (PORCINE) 5000 UNITS/ML 1ML VIAL SC SCH ×3 (05:10→21:34)
[2020-10-02] MEDS: VANCOMYCIN HCL 125MG/5ML ORAL SOL PO SCH ×2 (05:21→12:46)
[2020-10-02] MEDS: METOPROLOL TARTRATE 50 MG TAB PO SCH ×2 (06:00→19:05)
[2020-10-02] MEDS: ACCU-CHEK COMFORT CURVE STRIP VI SCH ×4 (06:33→21:32)
[2020-10-02] MEDS: InsuLIN REG 1unit/0.01ml Soln (100units/ml) SC SCH ×4 (06:33→21:33)
[2020-10-02] MEDS: HYDROcodone-ACET 10/325MG TAB PO PRN ×2 (07:39→20:39)
[2020-10-02 08:25] VITALS: BP 132/79
[2020-10-02] MEDS: cefTRIAXone 1GM/50ML D5W 50 ML IV SCH (10:00)
[2020-10-02] MEDS: ASPirin 81 mg TAB PO SCH (11:07)
[2020-10-02] MEDS: amLODIPine BESYLATE 5 MG TAB PO SCH (11:08)
[2020-10-02 11:47] LABS: Basophils # (auto) 0.1 10 ^3/uL (0-0.2); Basophils % (auto) 0.4 % (0.0-2.0); Eosinophils # (auto) 0.1 10 ^3/uL (0-0.8); Eosinophils % (auto) 0.7 % (0.0-7.0); Hematocrit 28.5 % (36.0-46.0); Hemoglobin 9.5 g/dL (12.2-16.2); Lymphocytes # (auto) 1.2 10 ^3/uL (0.4-5.4); Lymphocytes % (auto) 8.4 % (10.0-50.0); Mean Corpuscular Hemoglobin 29.9 pg (28.0-32.0); Mean Corpuscular Hgb Conc. 33.5 g/dL (32.0-36.0); Mean Corpuscular Volume 89.2 fL (80.0-100.0); Monocytes # (auto) 0.5 10 ^3/uL (0-1.3); Monocytes % (auto) 3.7 % (0.0-12.0); Neutrophils # (auto) 12.1 10 ^3/uL (1.6-8.6); Neutrophils % (auto) 86.8 % (37.0-80.0); Nucleated Red Blood Cells % 0.1 %; Red Blood Cells 3.19 10^6/uL (4.0-5.20); Red Cell Distribution Width 14.6 % (11.8-14.3); White Blood Cell 13.9 10^3/uL (4.4-10.8)
[2020-10-02 12:00] LABS: BUN/Creatinine Ratio 11.3; Potassium 5.3 mmol/L (3.5-5.1)
[2020-10-02 13:00] VITALS: BP 154/89
[2020-10-02] MEDS ORDERED: metroNIDAZOLE 500 MG TAB PO ONE (15:30)
[2020-10-02] MEDS ORDERED: SODIUM CHLORIDE 0.9% 500 ML IV ONE (15:30)
[2020-10-02 16:06] LABS: Basophils # (auto) 0 10 ^3/uL (0-0.2); Basophils % (auto) 0.2 % (0.0-2.0); Eosinophils # (auto) 0 10 ^3/uL (0-0.8); Eosinophils % (auto) 0.1 % (0.0-7.0); Hematocrit 28.8 % (36.0-46.0); Hemoglobin 9.8 g/dL (12.2-16.2); Lymphocytes # (auto) 0.7 10 ^3/uL (0.4-5.4); Mean Corpuscular Hemoglobin 30.2 pg (28.0-32.0); Mean Corpuscular Hgb Conc. 34.1 g/dL (32.0-36.0); Mean Corpuscular Volume 88.7 fL (80.0-100.0); Neutrophils # (auto) 15.1 10 ^3/uL (1.6-8.6); Neutrophils % (auto) 89.7 % (37.0-80.0); Red Blood Cells 3.25 10^6/uL (4.0-5.20); Red Cell Distribution Width 14.3 % (11.8-14.3); White Blood Cell 16.9 10^3/uL (4.4-10.8)
[2020-10-02 16:21] LABS: BUN/Creatinine Ratio 11.7; Calcium 7.2 mg/dL (8.5-10.1); Potassium 3.5 mmol/L (3.5-5.1)
[2020-10-02 16:27] VITALS: BP 142/66
[2020-10-02] MEDS ORDERED: ACETAMINOPHEN 325 MG TAB PO PRN (16:30)
[2020-10-02] MEDS: AMITRIPTYLINE HCL 25 MG TAB PO SCH (21:31)
[2020-10-02] MEDS: ATORVASTATIN 20 MG TAB PO SCH (21:31)
[2020-10-02 22:00] VITALS: BP 142/88
[2020-10-03 05:00] VITALS: BP 133/81
[2020-10-03] MEDS: HEPARIN SODIUM (PORCINE) 5000 UNITS/ML 1ML VIAL SC SCH ×3 (05:26→21:38)
[2020-10-03] MEDS: HYDROcodone-ACET 10/325MG TAB PO PRN ×3 (05:26→23:41)
[2020-10-03] MEDS: METOPROLOL TARTRATE 50 MG TAB PO SCH ×2 (06:02→18:46)
[2020-10-03] MEDS: ACCU-CHEK COMFORT CURVE STRIP VI SCH ×4 (06:03→21:45)
[2020-10-03] MEDS: InsuLIN REG 1unit/0.01ml Soln (100units/ml) SC SCH ×4 (06:27→21:46)
[2020-10-03 09:00] VITALS: BP 100/65
[2020-10-03] MEDS: amLODIPine BESYLATE 5 MG TAB PO SCH (10:00)
[2020-10-03] MEDS: ASPirin 81 mg TAB PO SCH (10:29)
[2020-10-03 12:39] VITALS: BP 142/77
[2020-10-03 16:03] LABS: Basophils # (auto) 0.1 10 ^3/uL (0-0.2); Basophils % (auto) 0.7 % (0.0-2.0); Eosinophils # (auto) 0.2 10 ^3/uL (0-0.8); Eosinophils % (auto) 1.1 % (0.0-7.0); Hematocrit 27.9 % (36.0-46.0); Hemoglobin 9.3 g/dL (12.2-16.2); Lymphocytes # (auto) 1.4 10 ^3/uL (0.4-5.4); Mean Corpuscular Hemoglobin 29.7 pg (28.0-32.0); Mean Corpuscular Hgb Conc. 33.3 g/dL (32.0-36.0); Mean Corpuscular Volume 89.3 fL (80.0-100.0); Monocytes # (auto) 0.9 10 ^3/uL (0-1.3); Monocytes % (auto) 5.3 % (0.0-12.0); Neutrophils # (auto) 14.9 10 ^3/uL (1.6-8.6); Neutrophils % (auto) 84.9 % (37.0-80.0); Red Blood Cells 3.13 10^6/uL (4.0-5.20); Red Cell Distribution Width 14.1 % (11.8-14.3); White Blood Cell 17.5 10^3/uL (4.4-10.8)
[2020-10-03] MEDS ORDERED: POTASSIUM CHL 20 Meq TABLET PO ONE (16:15)
[2020-10-03 16:16] LABS: BUN/Creatinine Ratio 12.5; Calcium 7.2 mg/dL (8.5-10.1); Potassium 3.2 mmol/L (3.5-5.1)
[2020-10-03] MEDS: POTASSIUM CHL 20MEQ/50ML 50 ML IV SCH ×2 (16:45→18:46)
[2020-10-03] MEDS ORDERED: PIPERACILLIN-TAZOB 2.25GM 50 ML IV SCH (17:00)
[2020-10-03] MEDS: VANCOMYCIN HCL 125MG/5ML ORAL SOL PO SCH ×2 (18:00→21:39)
[2020-10-03] MEDS: PIPERACILLIN-TAZOB 2.25GM 50 ML IV SCH (20:01)
[2020-10-03] MEDS: ATORVASTATIN 20 MG TAB PO SCH (21:39)
[2020-10-03] MEDS: AMITRIPTYLINE HCL 25 MG TAB PO SCH (21:39)
[2020-10-03 22:00] VITALS: BP 154/89
[2020-10-04] MEDS: PIPERACILLIN-TAZOB 2.25GM 50 ML IV SCH (03:35)
[2020-10-04 05:00] VITALS: BP 125/67
[2020-10-04] MEDS: VANCOMYCIN HCL 125MG/5ML ORAL SOL PO SCH ×3 (05:28→18:00)
[2020-10-04] MEDS: METOPROLOL TARTRATE 50 MG TAB PO SCH (05:29)
[2020-10-04] MEDS: HEPARIN SODIUM (PORCINE) 5000 UNITS/ML 1ML VIAL SC SCH ×2 (05:29→15:15)
[2020-10-04] MEDS: InsuLIN REG 1unit/0.01ml Soln (100units/ml) SC SCH ×3 (05:35→18:18)
[2020-10-04] MEDS: ACCU-CHEK COMFORT CURVE STRIP VI SCH ×3 (05:35→18:12)
[2020-10-04] MEDS: HYDROcodone-ACET 10/325MG TAB PO PRN ×3 (05:47→21:10)
[2020-10-04 06:22] LABS: Calcium 7.2 mg/dL (8.5-10.1)
[2020-10-04 06:27] LABS: BUN/Creatinine Ratio 12.3
[2020-10-04 06:29] LABS: Basophils # (auto) 0 10 ^3/uL (0-0.2); Basophils % (auto) 0.2 % (0.0-2.0); Eosinophils # (auto) 0.2 10 ^3/uL (0-0.8); Eosinophils % (auto) 1.3 % (0.0-7.0); Hematocrit 26.3 % (36.0-46.0); Hemoglobin 8.8 g/dL (12.2-16.2); Lymphocytes # (auto) 1.5 10 ^3/uL (0.4-5.4); Lymphocytes % (auto) 8.4 % (10.0-50.0); Mean Corpuscular Hemoglobin 30.2 pg (28.0-32.0); Mean Corpuscular Hgb Conc. 33.4 g/dL (32.0-36.0); Mean Corpuscular Volume 90.4 fL (80.0-100.0); Monocytes # (auto) 0.9 10 ^3/uL (0-1.3); Neutrophils # (auto) 14.7 10 ^3/uL (1.6-8.6); Neutrophils % (auto) 85.1 % (37.0-80.0); Red Blood Cells 2.91 10^6/uL (4.0-5.20); Red Cell Distribution Width 14.3 % (11.8-14.3); White Blood Cell 17.3 10^3/uL (4.4-10.8)
[2020-10-04 08:59] VITALS: BP 129/62
[2020-10-04] MEDS: amLODIPine BESYLATE 5 MG TAB PO SCH (10:33)
[2020-10-04] MEDS: ASPirin 81 mg TAB PO SCH (10:33)
[2020-10-04 13:00] VITALS: BP 129/69
[2020-10-04] MEDS ORDERED: VANC125PO PO (13:32)
[2020-10-04 16:51] VITALS: BP 132/63
== END 2020-10-04 21:35 | disposition home health service (06) | DRG 720 ==
LOC: ER 23:51 → EDBD 23:51 → TELE 09-25 06:17 → TELE-CENTR 09-29 13:14
PROVIDERS: ADMIT Hospitalist; ATTEND Internal Medicine
DX: A41.9 Sepsis, unspecified organism (principal); N17.0 Acute kidney failure with tubular necrosis; J96.01 Acute respiratory failure with hypoxia; E11.10 Type 2 diabetes mellitus with ketoacidosis without coma; G93.41 Metabolic encephalopathy; A04.72 Enterocolitis due to Clostridium difficile, not specified as recurrent; M62.82 Rhabdomyolysis; F01.50 Vascular dementia, unspecified severity, without behavioral disturbance, psychotic disturbance, mood disturbance, and anxiety; E66.01 Morbid (severe) obesity due to excess calories; E11.65 Type 2 diabetes mellitus with hyperglycemia; E83.39 Other disorders of phosphorus metabolism; E87.1 Hypo-osmolality and hyponatremia; E87.5 Hyperkalemia; N39.0 Urinary tract infection, site not specified; E87.6 Hypokalemia; F32.9 Major depressive disorder, single episode, unspecified; Z20.822 Contact with and (suspected) exposure to COVID-19; E11.22 Type 2 diabetes mellitus with diabetic chronic kidney disease; E78.00 Pure hypercholesterolemia, unspecified; E78.5 Hyperlipidemia, unspecified; N18.4 Chronic kidney disease, stage 4 (severe); I12.9 Hypertensive chronic kidney disease with stage 1 through stage 4 chronic kidney disease, or unspecified chronic kidney disease; Z88.8 Allergy status to other drugs, medicaments and biological substances; Z68.29 Body mass index [BMI] 29.0-29.9, adult; I69.351 Hemiplegia and hemiparesis following cerebral infarction affecting right dominant side; Z79.82 Long term (current) use of aspirin; Z83.3 Family history of diabetes mellitus; Z79.899 Other long term (current) drug therapy; Z90.710 Acquired absence of both cervix and uterus
CPT/HCPCS: 36415; 36600; 70450; 70551; 71045; 76705; 76775; 80048; 80053; 80074; 80307; 80320; 81001; 82010; 82550; 82570; 82805; 82962; 83036; 83605; 83735; 83930; 84100; 84156; 84300; 84484; 85025; 85379; 85610; 85730; 87040; 87086; 87426; 87493; 93005; 93970; 95819; 96365; 96366; 96367; 96368; 97110; 97116; 97530; G0378; J0696; J1815; J2543; J3480